=== PATIENT | male | born 1985 ===

== ENCOUNTER 2017-08-02 06:26 | Emergency (ER) | payer OTHER, SELFPAY ==
[2017-08-02 06:47] VITALS: BP 142/68; PULSE 79; RESP 16; TEMP 98.2; O2SAT 96
[2017-08-02] MEDS ORDERED: Lidocaine 5% Patch TD SCH (09:00)
--- NOTE | 2017-08-02 09:08 | RAD ---
PROCEDURE: Radiographs of the Lumbar Spine. HISTORY: pain COMPARISON: No prior. FINDINGS: BONES: Straightened lumbar curvature. No fracture or spondylolisthesis grossly evident. Vertebral body and disc interspace heights appear normal. DISC SPACES: Unremarkable. OTHER FINDINGS: None. IMPRESSION: Unremarkable radiographs of the lumbar spine.
--- NOTE | 2017-08-02 09:09 | RAD ---
PROCEDURE: Radiographs of the Sacrum and Coccyx HISTORY: pain COMPARISON: None available. TECHNIQUE: Frontal and lateral views of the sacrum and coccyx FINDINGS: BONES: Sacrum and coccyx unremarkable. No fracture or focal lesion. SACROILIAC JOINTS: Unremarkable. OTHER FINDINGS: None. IMPRESSION: Unremarkable radiographs of the sacrum and coccyx.
--- NOTE | 2017-08-02 09:44 | ED PDOC ---
HPI: Back Time Seen by Provider: 08/02/17 07:10 Chief Complaint (Nursing): Back Pain Chief Complaint (Provider): low back pain History Per: Patient, [employer] ([employer]) Onset/Duration Of Symptoms: Days (2) Current Symptoms Are (Timing): Still Present Quality Of Discomfort: Sharp Previous Symptoms: Back Pain Associated Symptoms: None Exacerbating Factor(s): Turning, Movement, Sitting Additional Complaint(s): 32yo male c/o central low back/ coccyx pain after sudden turning movement while at work. Denies weakness, numbness, incontinence or trouble urinating. States had similar pain several years ago, denies surgery was required or infection diagnosed. Past Medical History Reviewed: Historical Data, Nursing Documentation, Vital Signs Vital Signs: Last Vital Signs Temp 98.2 F 08/02/17 06:43 Pulse 79 08/02/17 06:43 Resp 16 08/02/17 06:43 BP 142/68 08/02/17 06:43 Pulse Ox 96 08/02/17 06:43 - Medical History PMH: No Chronic Diseases Denies: Chronic Kidney Disease - Family History Family History: States: Unknown Family Hx - Social History Drugs: Denies - Home Medications Home Medications: Ambulatory Orders Medication Instructions Recorded Ibuprofen [Motrin Tab] 1 tab PO PRN PRN 08/02/17 Ibuprofen [Motrin Tab] 600 mg PO Q6 PRN #15 tab 08/02/17 - Allergies Allergies/Adverse Reactions: Allergies Allergy/AdvReac Type Severity Reaction Status Date / Time No Known Allergies Allergy Verified 05/18/15 05:02 Review of Systems ROS Statement: Except As Marked, All Systems Reviewed And Found Negative Constitutional: Negative for: Fever, Chills Cardiovascular: Negative for: Chest Pain Respiratory: Negative for: Cough, Shortness of Breath Gastrointestinal: Negative for: Abdominal Pain Genitourinary Male: Negative for: Dysuria, Frequency, Penile Discharge, Scrotal Pain Musculoskeletal: Positive for: Back Pain. Negative for: Neck Pain, Shoulder Pain, Arm Pain, Leg Pain, Foot Pain Skin: Negative for: Rash, Lesions, Jaundice Neurological: Negative for: Weakness, Numbness, Headache Physical Exam - Reviewed Nursing Documentation Reviewed: Yes Vital Signs Reviewed: Yes - Physical Exam Appears: Positive for: Well, Non-toxic Head Exam: Positive for: ATRAUMATIC Skin: Positive for: Normal Color, Warm, Dry Neck: Positive for: Normal, Painless ROM Cardiovascular/Chest: Negative for: Tachycardia Respiratory: Negative for: Respiratory Distress Back: Positive for: Other (+tenderness along sacrum/coccyx, neg rectal or buttock tenderness, neg fluctuance, no signs pilonidal cyst/erythema or induration, minimal to mild hair to lower back) - ECG O2 Sat by Pulse Oximetry: 96 Pulse Ox Interpretation: Normal Medical Decision Making Medical Decision Making: XRays performed sacrum/lumbar and no acute fracture per radioloigist Analgesics given in ED w some improvement Rx NSAIDs, followup clinic if symptoms worsened. No signs pilonidal cyst at time eval. Disposition - Clinical Impression Clinical Impression: Back pain - Patient ED Disposition Is Patient to be Admitted: No Counseled Patient/Family Regarding: Studies Performed, Diagnosis, Need For Followup, Rx Given - Disposition Referrals: [facility] [Outside] Disposition: Routine/Home Disposition Time: 09:30 Condition: STABLE Prescriptions: Ibuprofen [Motrin Tab] 600 mg PO Q6 PRN #15 tab PRN Reason: Pain, Moderate (4-7) Instructions: Acute Low Back Pain (ED) Forms: [employer] ([place])
== END 2017-08-02 09:59 | disposition home or self-care (01) ==
LOC: H.ER 06:26
DX: M54.5 Low back pain (principal)
CPT/HCPCS: 72114; 72220; 96372; 99281; J1885